=== PATIENT | female | born 2000 | race African-American/Black ===

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

== ENCOUNTER 2021-05-20 00:42 | Emergency (ER) | payer MEDICAID ==
[~2021-05-20] VITALS: Ht 165.1 cm; Wt 77.0 kg
[2021-05-20 00:50] VITALS: BP 128/96
[2021-05-20] MEDS ORDERED: ACETAMINOPHEN 325MG TABLET PO ONE (01:30)
[2021-05-20] MEDS ORDERED: LIDOCAINE HCL 1% 20ML VIAL (Pyxis) INJ INFIL ONE ×2 (01:30→02:30)
[2021-05-20] MEDS ORDERED: TETANUS, DIPHTHERIA, PERTUSSIS VAC/PF 0.5ML (>10YR OLD) IM ONE (01:30)
[2021-05-20] MEDS ORDERED: BACITRACIN ZINC OINT UDPKT TOP ONE (01:30)
[2021-05-20] MEDS ORDERED: BO1 TP (02:26)
[2021-05-20] MEDS ORDERED: TOPUD MT (02:26)
[2021-05-20] MEDS ORDERED: LIDOCAINE HCL 1% 10 MG/ML 10ML VIAL INJ SCH (02:45)
== END 2021-05-20 04:44 | disposition home or self-care (01) ==
LOC: ER 00:42
DX: S91.111A Laceration without foreign body of right great toe without damage to nail, initial encounter (principal); W22.8XXA Striking against or struck by other objects, initial encounter; Y93.89 Activity, other specified; Y92.89 Other specified places as the place of occurrence of the external cause; Y99.8 Other external cause status
CPT/HCPCS: 12002; 73630; 90471; 90715; 99283; A4217; J3490; Z7610